=== PATIENT | female | born 1995 | race Caucasian/White ===

== ENCOUNTER 2019-11-30 15:46 | Outpatient (CLI) | payer BC ==
--- NOTE | 2019-11-30 16:30 | ULT ---
LIMITED RIGHT BREAST ULTRASOUND LIMITED LEFT BREAST ULTRASOUND: 11/30/19 HISTORY: Possible lumps in both breasts. FINDINGS: There is a lobulated well-circumscribed nonshadowing solid mass at the 10 o'clock position of the ri ght breast, 4 cm from the nipple which is stable since exam of 09/15/17 from an outside institution. A new palpable mass at the 9 o'clock position of the right breast 3 cm from the nipple demonstrates a well-circumscribed nonshadowing solid mass measuring 2.4 x 1.5 x 2.3 cm. Sonographic evaluation of the palpable abnormality at the 1 o'clock position of the left breast, 8 cm from the nipple demonstrates a well circumscribed nonshadowing lobulated solid mass measuring 1.9 x 1.2 x 2 cm. IMPRESSION: Findings are most likely due to bilateral fibroadenomas. POS: OFF
== END 2019-11-30 15:47 | disposition home or self-care (01) ==
LOC: BICULT 15:46
PROVIDERS: ATTEND Physician Assistant
DX: N63.10 Unspecified lump in the right breast, unspecified quadrant (principal); N63.20 Unspecified lump in the left breast, unspecified quadrant

== ENCOUNTER 2020-01-16 05:46 | Outpatient (CLI) | payer BC ==
[2020-01-16 08:55] LABS: #Eosinphils 0.1 10x3/uL (0.0-0.5); #Monocytes 0.5 10x3/uL (0.0-1.1); #Neutrophils 3.9 10x3/uL (1.5-8.4); %Basophils 0.6 % (0.0-2.0); %Eosinophils 1.9 % (0.0-6.0); %Lymphocytes 32.2 % (18.0-47.0); %Monocytes 6.9 % (0.0-10.0); %Neutrophils 58.1 % (40.0-75.0); Hemoglobin 12.5 g/dL (12.0-16.0); Mean Corpuscular HGB CONC 33.5 G/DL (32.0-36.0); Mean Corpuscular Hemoglobin 29.5 PG (27.0-33.0); Mean Platelet Volume 10.7 fl (7.4-10.4); Platelet Count 247 10x3/uL (130-400); RBC Distribution Width 12.2 % (11.5-14.5); Red Blood Cell (RBC) Count 4.24 10x6/uL (3.90-5.20); White Blood Cell (WBC) Count 6.7 10x3/uL (4.5-11.0)
[2020-01-16 09:31] LABS: BHCG - Serum Negative (NEGATIVE); Pregs Control Background? CLEAR/WHITE (CLR/WHITE); Pregs Control Bar Appear? YES (CONTROL BAR)
[2020-01-16 09:37] LABS: Anion Gap 12 mmol/L (10-20); BUN (Urea Nitrogen) 12 mg/dL (7.0-18.7); Calc. Creatinine Clearance 0 mL/min (70-130); Calcium 8.7 mg/dL (7.8-10.44); Carbon Dioxide 25 mmol/L (22-29); Chloride 106 mmol/L (98-107); Estimated GFR-MDRD 84; Glucose 86 mg/dL (70-105); Potassium 3.9 mmol/L (3.5-5.1); Sodium 139 mmol/L (136-145)
[2020-01-17 22:54] LABS: SARS-CoV-2 MS2 Positive; SARS-CoV-2 N Gene Negative; SARS-CoV-2 S Gene Negative; SARS-CoV-2 by NAA Not Detected (NotDetected); SARS-CoV-2 orf1ab Negative
== END 2020-01-16 05:47 | disposition home or self-care (01) ==
LOC: LABBT 05:46
PROVIDERS: ATTEND Specialist
DX: Z01.818 Encounter for other preprocedural examination (principal); Z01.812 Encounter for preprocedural laboratory examination; N63.20 Unspecified lump in the left breast, unspecified quadrant; Z20.828 Contact with and (suspected) exposure to other viral communicable diseases
CPT/HCPCS: 80048; 84703; 85025; 87635; U0003

== ENCOUNTER 2020-01-21 12:32 | Day surgery (SDC) | payer BC ==
[2020-01-18 14:21] VITALS: BMI 25.9
[2020-01-21] MEDS ORDERED: Ketorolac Tromethamine 30 MG/ML VIAL ONE (12:56)
[2020-01-21] MEDS ORDERED: Acetaminophen 500 MG TAB ONE (12:56)
[2020-01-21] MEDS ORDERED: Lidocaine 1% PF 5 ML VIAL ONE (14:02)
[2020-01-21] MEDS ORDERED: Ondansetron PF 4 MG/2 ML Vial ONE (14:02)
[2020-01-21] MEDS ORDERED: PROPOFOL 200 MG/20 ML VIAL ONE (14:02)
[2020-01-21] MEDS ORDERED: PHENYLEPHRINE-NS 100 MCG/ML 10 ML SYRINGE ONE (14:02)
[2020-01-21] MEDS ORDERED: Famotidine/PF 20 mg/2ml Vial ONE (14:07)
[2020-01-21] MEDS ORDERED: Scopolamine 1.5 mg/72 hour Patch ONE (14:07)
[2020-01-21] MEDS ORDERED: Lidocaine 1% w/Epinephrine 1:100K 20 ML VIAL ONE ×2 (15:36→16:57)
[2020-01-21] MEDS ORDERED: Bupivacaine 0.25% HCL 30 ML VIAL ONE ×2 (15:36→16:57)
[2020-01-21] MEDS ORDERED: Fentanyl 100 MCG/2 ML VIAL ONE (15:37)
[2020-01-21] MEDS ORDERED: Midazolam HCl 2 mg/2 ml Vial ONE (15:44)
--- NOTE | 2020-01-22 14:08 | OP ---
DATE OF PROCEDURE: 01/21/2020 PREOPERATIVE DIAGNOSIS: Bilateral breast fibroadenomas. POSTOPERATIVE DIAGNOSIS: Bilateral breast fibroadenomas. OPERATION PERFORMED: Excision of 4 separate fibroadenomas, 3 within the right breast and 1 within the left breast. ANESTHESIA: General with laryngeal mask airway. INDICATIONS: The patient is a 25-year-old white female. She presented with palpable masses in her bilateral breasts. She additionally had noted a new lesion at the lower inner quadrant of the right breast, that was causing her some discomfort. She requested that I evaluate this and remove it if I felt that this was an additional fibroadenoma. DESCRIPTION OF OPERATION: Informed consent was obtained. The patient was taken to the operating room where general anesthesia was obtained with the patient in supine position. Bilateral breasts were prepped with ChloraPrep and draped in sterile fashion. Attention was turned to the right breast first. She had a large palpable fibroadenoma at about the 9 o'clock Radian. I decided to approach this through a circumareolar incision. Local anesthetic was infiltrated and a lateral based circumareolar incision was created. Dissection was carried through skin and subcutaneous tissue. I carefully dissected laterally until I arrived at the easily palpable fibroadenoma. This was carefully dissected circumferentially and removed intact. Meticulous hemostasis was obtained. The wound was closed in layers with 3-0 and 4-0 Monocryl. Attention was turned to the lower inner lesion of the right breast. Ultrasound was utilized. I did identify a lesion that appeared consistent with a smaller fibroadenoma. This was palpable. I therefore again placed local anesthetic, created a small incision directly over the mass, grasped with Allis clamps and dissected circumferentially. The wound was further infiltrated with local anesthetic and closed in layers with 3-0 and 4-0 Monocryl. Attention was turned to the lesion in the upper outer quadrant. I would hope that I would be able to address this through an axillary incision, however, it is too far medial within the breast. I therefore created an incision somewhat lateral to the mass, which was palpable and visualized with ultrasound. Dissection was carried through skin and subcutaneous tissue. I then dissected medially to identify the lesion. This appeared to be a multilobular fibroadenoma. I removed the 1st portion in one segment and the 2nd portion in the 2nd segment. Again, hemostasis was meticulous with electrocautery. Additional local anesthetic was infiltrated. The wound was closed in layers with 3-0 and 4-0 Monocryl. Finally, I turned my attention to the left breast. In the upper outer quadrant of the breast, there was an easily palpable fibroadenoma. I created an incision in the inferior axilla, dissected inferiorly, and removed the fibroadenoma intact. Additional local anesthetic was infiltrated. Hemostasis was obtained. The wound was closed in layers with 3-0 and 4-0 Monocryl. Dermabond was placed externally on each of the 4 incisions. There were no complications. Blood loss was negligible, less than 10 mL. She was taken to recovery room in stable condition. Job ID: [id number]
== END 2020-01-21 19:13 | disposition home or self-care (01) ==
LOC: SDC 12:32
PROVIDERS: ATTEND Specialist
PROC: 0HBV0ZZ Excision of Bilateral Breast, Open Approach (ICD-10-PCS; principal; 2020-01-21)
DX: D24.2 Benign neoplasm of left breast (principal); D24.1 Benign neoplasm of right breast; Z79.899 Other long term (current) drug therapy
CPT/HCPCS: 88305; 88307; J0690; J1885; J2250; J2405; J2704; J3010; S0020; S0028